=== PATIENT | male | born 1940 | race Caucasian/White ===

== ENCOUNTER 2018-07-08 05:41 | Inpatient (IN) ==
[2018-06-30 11:26] LABS: Basophils # 0.1 10*3/uL (0.0-0.2); Basophils % 0.8 % (0.0-0.8); Eosinophils # 0.2 10*3/uL (0.0-0.87); Eosinophils % 1.5 % (0.00-10.9); Hematocrit 45.5 VOL% (42.0-52.0); Hemoglobin 15.2 GM/DL (14.0-18.0); Immature Granulocytes % 0.5 %; Immature Granulocytes Absolute 0.05 #; Lymphocytes % 18.6 % (21.2-54.2); Mean Corpuscular HGB Conc 33.4 GM/DL (32-36); Mean Corpuscular Hemoglobin 32 PG (27-34); Monocytes # 0.7 10*3/uL (0.11-0.8); Neutrophils # 7.6 10*3/uL (1.4-7.4); Neutrophils % 71.6 % (38.7-73.9); Platelet Count 297 T/CUMM (130-400); Red Blood Count 4.79 MC/CUMM (3.8-5.5); Red Cell Distribution Width 12.8 % (9.3-17.3); White Blood Count 10.6 T/CUMM (4-12)
[2018-06-30 11:35] LABS: Partial Thromboplastin Time 27.8 SECS (0-40)
[2018-06-30 11:41] LABS: Apearance,Urine CLEAR (Clear); Bilirubin,Urine Negative (Negative); Blood, Urine Negative (Negative); Glucose,Urine (UA) Negative (Negative); Ketones,Urine Negative (Negative); Mucus,Urine Occasional /LPF (Occasional); Nitrite,Urine Negative (Negative); Protein,Urine Negative; RBC,Urine 1 /HPF (0-4); Urine Color Yellow (Yellow); Urine Specific Gravity 1.027 (1.001-1.035); Urine Urobilinogen < 2.0 EU/DL (0.2-1.0); WBC,Urine <1 /HPF (0-6)
[2018-06-30 11:57] LABS: Albumin 3.7 G/DL (3.4-5.0); Bilirubin,Total 0.8 MG/DL (0.2-1.0); Calcium 8.3 MG/DL (8.5-10.1); Osmolality,Calculated 279.7 MOS/KG (273-304); Potassium 3.9 MMOL/L (3.5-5.1); Total Protein 7.5 G/DL (6.4-8.3)
[2018-07-08] MEDS ORDERED: ceFAZolin 1,000 MG in SYRINGE 1 EACH IV ONE (06:00)
[2018-07-08] MEDS ORDERED: VANCOMYCIN INJ 1,000 MG in SODIUM CHLORIDE 0.9% 250 ML IV ONE (06:00)
[2018-07-08] MEDS ORDERED: FAMOTIDINE 20 MG TABLET PO ONE (07:08)
[2018-07-08] MEDS ORDERED: DIAZEPAM 5 MG TABLET PO ONE (07:08)
[2018-07-08] MEDS ORDERED: BUPIVACAINE SPINAL 0.75% 2 ML AMP SPINAL ONE (07:20)
[2018-07-08] MEDS ORDERED: ACETAMINOPHEN 1,000 MG/100 ML VIAL IV ONE (07:21)
[2018-07-08] MEDS ORDERED: ALBUTEROL 2.5 MG/3 ML NEB RESP TX ONE (07:22)
[2018-07-08] MEDS ORDERED: LACTATED RINGERS 1,000 ML IV SCH (07:30)
[2018-07-08] MEDS ORDERED: BACITRACIN OINT 0.9 GM PACK TOP ONE (07:32)
[2018-07-08] MEDS ORDERED: ceFAZolin 1,000 MG VIAL ONE (07:38)
[2018-07-08] MEDS ORDERED: DIAZEPAM 5 MG TABLET ONE (07:38)
[2018-07-08] MEDS ORDERED: FAMOTIDINE 20 MG TABLET ONE (07:38)
[2018-07-08] MEDS ORDERED: VANCOMYCIN 1,000 MG VIAL ONE (07:38)
[2018-07-08] MEDS ORDERED: MIDAZOLAM 2 MG/2 ML VIAL ONE (08:02)
[2018-07-08] MEDS ORDERED: ROPIVACAINE 0.5% 30 ML VIAL ONE (08:02)
[2018-07-08] MEDS ORDERED: diphenhydrAMINE CAP 25 MG CAPSULE PO PRN (09:02)
[2018-07-08] MEDS ORDERED: oxyCODONE IR 5 MG TABLET PO PRN ×2 (09:02)
[2018-07-08] MEDS ORDERED: MAGNESIUM HYDROXIDE SUSP 30 ML UDCUP PO PRN (09:02)
[2018-07-08] MEDS ORDERED: MORPHINE 4 MG/1 ML VIAL IV PRN ×2 (09:02)
[2018-07-08] MEDS ORDERED: ONDANSETRON 4 MG/2 ML VIAL IV PRN (09:02)
[2018-07-08] MEDS ORDERED: fentaNYL 100 MCG/2 ML VIAL ONE (10:44)
[2018-07-08] MEDS ORDERED: ONDANSETRON 4 MG/2 ML VIAL ONE (10:44)
[2018-07-08] MEDS ORDERED: PROPOFOL 200 MG/20 ML VIAL IV ONE (10:44)
[2018-07-08] MEDS ORDERED: TRANEXAMIC ACID 1,000 MG/10 ML VIAL ONE (10:44)
[2018-07-08] MEDS ORDERED: INFLUENZA VIRUS VACCINE 0.5 ML SYRINGE IM ONE (11:26)
[2018-07-08] MEDS: KETOROLAC 15 MG/1 ML VIAL IV SCH ×3 (12:11→22:24)
[2018-07-08] MEDS: ACETAMINOPHEN 500 MG TABLET PO SCH ×2 (12:13→18:21)
[2018-07-08] MEDS: ceFAZolin 2,000 MG in PREMIX 1 EACH IV SCH ×2 (12:13→20:27)
[2018-07-08] MEDS: LACTATED RINGERS 1,000 ML IV SCH ×2 (14:15→22:21)
[2018-07-08] MEDS: DOCUSATE SODIUM 100 MG CAPSULE PO SCH (20:28)
[2018-07-08] MEDS: ATORVASTATIN 20 MG TABLET PO SCH (20:28)
[2018-07-08] MEDS: SERTRALINE 25 MG TABLET PO SCH (20:28)
[2018-07-09] MEDS: ACETAMINOPHEN 500 MG TABLET PO SCH ×2 (01:21→06:18)
[2018-07-09] MEDS: FONDAPARINUX 2.5 MG/0.5 ML SYRINGE SUBCUT SCH (03:22)
[2018-07-09] MEDS: KETOROLAC 15 MG/1 ML VIAL IV SCH (03:22)
[2018-07-09] MEDS: LACTATED RINGERS 1,000 ML IV SCH (03:24)
[2018-07-09 05:30] LABS: Basophils # 0.1 10*3/uL (0.0-0.2); Basophils % 0.5 % (0.0-0.8); Eosinophils # 0.2 10*3/uL (0.0-0.87); Eosinophils % 1.6 % (0.00-10.9); Hematocrit 37.5 VOL% (42.0-52.0); Hemoglobin 12.3 GM/DL (14.0-18.0); Immature Granulocytes % 0.6 %; Immature Granulocytes Absolute 0.06 #; Lymphocytes # 1.2 10*3/uL (1.4-4.0); Lymphocytes % 11.8 % (21.2-54.2); Mean Corpuscular HGB Conc 32.8 GM/DL (32-36); Mean Corpuscular Hemoglobin 32 PG (27-34); Mean Corpuscular Volume 96.2 FL (87-102); Mean Platelet Volume 9.5 FL (9.6-12.0); Monocytes # 1.1 10*3/uL (0.11-0.8); Monocytes % 10.8 % (1.7-12.7); Neutrophils # 7.7 10*3/uL (1.4-7.4); Neutrophils % 74.7 % (38.7-73.9); Platelet Count 236 T/CUMM (130-400); Red Cell Distribution Width 12.8 % (9.3-17.3); White Blood Count 10.4 T/CUMM (4-12)
[2018-07-09 06:06] LABS: Calcium 7.8 MG/DL (8.5-10.1); Osmolality,Calculated 282.4 MOS/KG (273-304); Potassium 3.7 MMOL/L (3.5-5.1)
[2018-07-09] MEDS: LOSARTAN/HCTZ 50-12.5 MG TABLET PO SCH (09:56)
[2018-07-09] MEDS: OMEGA 3 ACID ETHYL ESTERS 1 GM CAPSULE PO SCH (09:56)
[2018-07-09] MEDS: amLODIPine 5 MG TABLET PO SCH (09:57)
[2018-07-09] MEDS: DOCUSATE SODIUM 100 MG CAPSULE PO SCH ×2 (09:57→21:16)
[2018-07-09] MEDS: CELECOXIB 200 MG CAPSULE PO SCH (14:37)
[2018-07-09] MEDS: SERTRALINE 25 MG TABLET PO SCH (21:16)
[2018-07-09] MEDS: ATORVASTATIN 20 MG TABLET PO SCH (21:16)
[2018-07-10] MEDS: FONDAPARINUX 2.5 MG/0.5 ML SYRINGE SUBCUT SCH (04:15)
[2018-07-10 06:22] LABS: Basophils # 0.1 10*3/uL (0.0-0.2); Basophils % 0.4 % (0.0-0.8); Eosinophils # 0.2 10*3/uL (0.0-0.87); Eosinophils % 1.5 % (0.00-10.9); Hematocrit 35.6 VOL% (42.0-52.0); Hemoglobin 11.7 GM/DL (14.0-18.0); Immature Granulocytes % 0.6 %; Immature Granulocytes Absolute 0.07 #; Lymphocytes # 1.1 10*3/uL (1.4-4.0); Lymphocytes % 9.2 % (21.2-54.2); Mean Corpuscular HGB Conc 32.9 GM/DL (32-36); Mean Corpuscular Hemoglobin 32 PG (27-34); Mean Platelet Volume 9.6 FL (9.6-12.0); Monocytes # 1.2 10*3/uL (0.11-0.8); Monocytes % 9.6 % (1.7-12.7); Neutrophils # 9.6 10*3/uL (1.4-7.4); Neutrophils % 78.7 % (38.7-73.9); Platelet Count 222 T/CUMM (130-400); Red Blood Count 3.67 MC/CUMM (3.8-5.5); Red Cell Distribution Width 12.8 % (9.3-17.3); White Blood Count 12.1 T/CUMM (4-12)
[2018-07-10] MEDS: CELECOXIB 200 MG CAPSULE PO SCH (08:50)
[2018-07-10] MEDS: OMEGA 3 ACID ETHYL ESTERS 1 GM CAPSULE PO SCH (08:50)
[2018-07-10] MEDS: DOCUSATE SODIUM 100 MG CAPSULE PO SCH (08:50)
[2018-07-10] MEDS: LOSARTAN/HCTZ 50-12.5 MG TABLET PO SCH (08:50)
[2018-07-10] MEDS: amLODIPine 5 MG TABLET PO SCH (08:50)
[2018-07-10 11:52] VITALS: BP 129/52
== END 2018-07-10 12:30 | disposition home health service (06) | DRG 470 ==
LOC: N.OR 05:41 → N.SDSINP 05:42 → N.3E 09:02
PROVIDERS: ADMIT Orthopaedic Surgery; ATTEND Orthopaedic Surgery

== ENCOUNTER 2020-05-02 06:45 | Observation (INO) ==
[2020-05-02 07:22] LABS: Basophils # 0.1 10*3/uL (0.0-0.2); Basophils % 0.8 % (0.0-0.8); Eosinophils # 0.2 10*3/uL (0.0-0.87); Hematocrit 46.3 VOL% (42.0-52.0); Hemoglobin 15.5 GM/DL (14.0-18.0); Immature Granulocytes % 0.8 %; Immature Granulocytes Absolute 0.09 #; Lymphocytes # 1.9 10*3/uL (1.4-4.0); Lymphocytes % 17.6 % (21.2-54.2); Mean Corpuscular HGB Conc 33.5 GM/DL (32-36); Mean Corpuscular Volume 95.5 FL (87-102); Mean Platelet Volume 8.8 FL (9.6-12.0); Monocytes % 9.2 % (1.7-12.7); Neutrophils % 69.6 % (38.7-73.9); Platelet Count 265 T/CUMM (130-400); Red Blood Count 4.85 MC/CUMM (3.8-5.5); Red Cell Distribution Width 13.2 % (9.3-17.3); White Blood Count 10.9 T/CUMM (4-12)
[2020-05-02 07:24] LABS: PT Patient Result 11.2 SECS (9.8-11.9)
[2020-05-02] MEDS: SODIUM CHLORIDE 0.45% 1,000 ML IV SCH (08:28)
[2020-05-02] MEDS ORDERED: DIAZEPAM 5 MG TABLET PO ONE (08:30)
[2020-05-02] MEDS ORDERED: DIAZEPAM 5 MG TABLET ONE (08:57)
[2020-05-02] MEDS ORDERED: SERTRALINE 25 MG TABLET PO SCH (21:00)
[2020-05-03] MEDS: ATORVASTATIN 20 MG TABLET PO SCH ×2 (08:39→11:02)
[2020-05-03] MEDS ORDERED: LOSARTAN/HCTZ 50-12.5 MG TABLET PO SCH (09:00)
[2020-05-03] MEDS ORDERED: TIMOLOL 0.5% OPH SOLN 5 ML BOTTLE BOTH EYES SCH (09:00)
[2020-05-03] MEDS ORDERED: amLODIPine 5 MG TABLET PO SCH (09:00)
[2020-05-03] MEDS ORDERED: ASPIRIN EC 81 MG TABLET PO SCH (09:00)
[2020-05-03] MEDS ORDERED: OMEGA 3 ACID ETHYL ESTERS 1 GM CAPSULE PO SCH (09:00)
[2020-05-03] MEDS: SODIUM CHLORIDE 0.45% 1,000 ML IV SCH (11:02)
[2020-05-03 16:45] VITALS: BP 119/51
== END 2020-05-03 16:47 | disposition home or self-care (01) ==
LOC: N.RAD 06:45 → N.3E 06:45 → N.SDSINP 06:50 → N.3E 15:22
PROVIDERS: ADMIT Radiology Diagnostic Radiology; ATTEND Radiology Diagnostic Radiology